=== PATIENT | male | born 1960 | race Caucasian/White ===

== ENCOUNTER 2017-10-27 11:34 | Emergency (ER) | payer SELFPAY ==
[~2017-10-27] VITALS: Ht 175.3 cm; Wt 70.8 kg
[2017-10-27] MEDS ORDERED: OXYMETAZOLINE HCL 0.05% NAS 1 SPRAY BTL ONE (12:00)
[2017-10-27 12:10] LABS: BASOPHILS # (AUTO) 0.1 (0.0-0.1); BASOPHILS % 0.7 % (0.0-1.0); EOSINOPHILS # (AUTO) 0.2 (0.0-0.4); EOSINOPHILS % 2.7 % (0.0-6.0); HEMATOCRIT 47.6 % (38.2-49.6); HEMOGLOBIN 16.5 g/dL (14.0-18.0); LYMPHOCYTES # (AUTO) 1.6 (1.0-3.2); LYMPHOCYTES % 17.5 % (18.0-39.1); MEAN CORPUSCULAR HGB CONC 34.7 g/dL (31-35); MEAN CORPUSCULAR VOLUME 92.4 fL (81-99); MONOCYTES % 11.1 % (4.4-11.3); NEUTROPHILS # (AUTO) 6.1 (2.1-6.9); NEUTROPHILS % 67.6 % (38.7-80.0); PLATELET COUNT 184 x10e3/uL (140-360); RED BLOOD COUNT 5.15 x10e6/uL (4.3-5.7)
[2017-10-27 12:24] LABS: INR 2.71; PARTIAL THROMBOPLASTIN TIME 49.9 seconds (23.8-35.5)
[2017-10-27 12:46] VITALS: BP 140/89
== END 2017-10-27 12:57 | disposition home or self-care (01) ==
LOC: ER 11:34
DX: R04.0 Epistaxis (principal); I50.9 Heart failure, unspecified; I48.91 Unspecified atrial fibrillation; J45.909 Unspecified asthma, uncomplicated; Z79.899 Other long term (current) drug therapy
CPT/HCPCS: 36415; 85025; 85610; 85730; 99284

== ENCOUNTER → 2017-10-27 | Emergency (ER) | payer SELFPAY ==
[~2017-10-27] MED LIST: Z.0.COUMADIN5 MG; Z.0.LASIX20 MG; Z.0.LISINOPRIL2.5 MG; Z.0.TOPROL XL25 MG
== END | disposition left against medical advice (07) ==
LOC: ER 17:15
DX: R04.0 Epistaxis (principal)